=== PATIENT | female | born 1970 | race Caucasian/White ===

== ENCOUNTER → 2016-10-22 18:23 | Outpatient (CLI) | payer OTHER | END | disposition home or self-care (01) | LOC: D.MAMMO 10-09 10:15 | DX: Z12.31 Encounter for screening mammogram for malignant neoplasm of breast (principal) ==

== ENCOUNTER 2017-11-04 05:40 | Day surgery (SDC) | payer OTHER ==
[2017-11-02 11:13] LABS: HEMATOCRIT 37.1 % (36.0-48.0); HEMOGLOBIN 12.7 g/dL (12-16); MCH 30.4 pg (26.0-34.0); MCHC 34.2 g/dL (31.0-37.0); MCV 88.8 fL (80.0-100.0); MEAN PLATELET VOLUME 9.8 fL (7.4-10.4); RBC 4.18 10x6/uL (4.00-5.40); RDW 12.5 % (11.5-14.5); WBC 7.9 10x3/uL (4.8-10.8)
[~2017-11-04] VITALS: Ht 152.4 cm; Wt 64.9 kg
--- NOTE | ~2017-11-04 | OP ---
PATIENT NAME: PEDRO PENN MEDICAL RECORD: [id number] :70 LOCATION:[facility] ADMISSION DATE: SURGEON: JACOB AMAYA MD DATE OF OPERATION: 11/04/2017 PREOPERATIVE DIAGNOSES: Menorrhagia and a few abnormal ultrasound findings. POSTOPERATIVE DIAGNOSIS: Endometrial polyps. PROCEDURE: Hysteroscopy, D&C. SURGEON: Jacob Amaya MD ANESTHESIA: General by LMA. ESTIMATED BLOOD LOSS: Minimal. INTRAVENOUS FLUIDS: Per anesthesia records. HYSTEROSCOPIC FLUID LOSS: Approximately 100 cc of 0.9 normal saline. FINDINGS: 1. Proliferative-appearing endometrial cavity. 2. Multiple posterior endocervical and endometrial polyps. 3. Bilateral ostia identified. 4. Grossly normal external genitalia and cervix. COMPLICATIONS: None apparent. SPECIMENS: Endometrial curettings. DESCRIPTION OF PROCEDURE: The patient was taken to the operating room where general anesthesia was achieved without difficulty. The patient was prepped and draped in normal sterile fashion in the dorsal lithotomy position in the [facility]. At this point, the patient was prepped and draped and the bladder drained of approximately 100 cc of clear yellow urine. At this point, a Graves speculum was placed in the vagina and the cervix was identified and grasped on its anterior lip with a single tooth tenaculum. Uterus sounded to approximately 9 cm without resistance. The cervix was then gently dilated to approximately 7 mm, at which point the hysteroscope was introduced. Survey of the uterine cavity was performed following removal of the hysteroscope. A #1 curette was used to gently curette all 4 quadrants of the uterine cavity with special attention paid on the posterior part where multiple polyps were removed. Following curettage, the hysteroscope was replaced into the uterus and the polyps were found to have been removed with no significant active bleeding. The hysteroscope was then removed. The tenaculum was removed from the cervix. The patient tolerated the procedure well, was transferred to postanesthesia recovery stable without incident. TRANSINT:[id number] Voice Confirmation ID: [id number] DOCUMENT ID: [id number] OPERATIVE REPORT [id number] PEDRO PENN JACOB AMAYA MD at 1438 CC: [id number] DICTATION DATE: 11/04/17921 VICE PRESIDENT INDUSTRIAL RELATIONS: 11/04/17 1050 [facility]P [place] 11/04/17 [facility] [address] [place] [id number]
[~2017-11-04 05:40] MED LIST: MULTIPLE VITAMI1 TA1 PO; OMEGA 3 FISH OI1 CAP PO; PROBIOTIC250 MG PO
[2017-11-04 07:21] VITALS: BP 113/64; Ht 152.4 cm; Wt 64.9 kg
== END 2017-11-04 11:10 | disposition home or self-care (01) ==
LOC: D.PAN 05:40 → D.OPS 08:45 → D.PAN 09:15
PROVIDERS: Anesthesiology
DX: N84.0 Polyp of corpus uteri (principal); Z01.812 Encounter for preprocedural laboratory examination

== ENCOUNTER → 2017-12-16 16:45 | Outpatient (CLI) | payer OTHER ==
[2017-11-04 07:21] VITALS: BMI 27.9
== END | disposition home or self-care (01) ==
LOC: D.MAMMO 16:00
DX: Z12.31 Encounter for screening mammogram for malignant neoplasm of breast (principal)

== ENCOUNTER 2018-02-24 06:00 | Day surgery (SDC) | payer OTHER ==
[2018-02-23 12:53] LABS: BASOPHILS 0.2 % (0-2); EOSINOPHILS 0.4 % (0-7); HEMATOCRIT 40.7 % (36.0-48.0); HEMOGLOBIN 13.7 g/dL (12-16); IMMATURE GRANULOCYTES 0.2 % (0-5); LYMPHOCYTES 27.2 % (15-50); MCH 30.7 pg (26.0-34.0); MCHC 33.7 g/dL (31.0-37.0); MCV 91.3 fL (80.0-100.0); MONOCYTES 5.3 % (2-11); NEUTROPHILS 66.7 % (40-80); PLATELET COUNT 259 10x3/uL (130-400); RBC 4.46 10x6/uL (4.00-5.40); RDW 12.6 % (11.5-14.5); WBC 8.3 10x3/uL (4.8-10.8)
--- NOTE | ~2018-02-24 | OP ---
PATIENT NAME: PEDRO PENN MEDICAL RECORD: [id number] :70 LOCATION:[facility] ADMISSION DATE: SURGEON: OSCAR AMAYA MD DATE OF OPERATION: 02/24/2018 PREOPERATIVE DIAGNOSIS: Simple endometrial hyperplasia. POSTOPERATIVE DIAGNOSIS: Simple endometrial hyperplasia. PROCEDURES: Hysteroscopy, D and C. SURGEON: Oscar Amaya MD ESTIMATED BLOOD LOSS: Minimal. INTRAVENOUS FLUIDS: Per anesthesia record. HYSTEROSCOPIC FLUID LOSS: Approximately 100 cc of 0.9 normal saline. SPECIMENS: Endometrial curettings. COMPLICATIONS: None apparent. FINDINGS: Grossly normal appearing endometrial cavity cervix, vagina, and external genitalia. DESCRIPTION OF THE PROCEDURE: The patient was taken to the operating room where general anesthesia was achieved without difficulty, the patient was then prepped and draped in normal sterile fashion in dorsal lithotomy position in the [facility]. At this point, the patient was prepped and draped, bladder drained of approximately 100 cc of clear yellow urine. Graves speculum was then placed into the vagina and a single tooth tenaculum was used to grasp the anterior lip of the cervix. The patient sounded to approximately 8.5 cm. Dilation was performed at approximately 6 mm, at which point, the hysteroscope was placed and survey of the endometrial canal was performed. Following hysteroscopy, a #1 curette was used to do fractional curetting of all 4 quadrants of the uterus. Minimal bleeding was noted. The tenaculum was then removed followed by the speculum. The patient tolerated procedure well, was transferred to postanesthesia recovery stable without incident. TRANSINT:[id number] Voice Confirmation ID: [id number] DOCUMENT ID: [id number] OSCAR AMAYA MD at 1844 CC: [id number] DICTATION DATE: 03/11/182048 COORDINATE MEASURING MACHINE TECHNICIAN: 03/11/182121 [facility] 02/24/[address] [address]
[2018-02-24 07:28] VITALS: BP 95/48; BMI 29.1
== END 2018-02-24 11:45 | disposition home or self-care (01) ==
LOC: D.OPS 06:00 → D.PAN 08:30 → D.OPS 09:30
PROVIDERS: Obstetrics & Gynecology
DX: N85.01 Benign endometrial hyperplasia (principal); Z87.891 Personal history of nicotine dependence; Z01.812 Encounter for preprocedural laboratory examination

== ENCOUNTER 2018-04-07 06:50 | Day surgery (SDC) | payer OTHER ==
[2018-04-06 15:24] LABS: BASOPHILS 0.2 % (0-2); EOSINOPHILS 0.8 % (0-7); HEMATOCRIT 39.9 % (36.0-48.0); HEMOGLOBIN 13.3 g/dL (12-16); IMMATURE GRANULOCYTES 0.1 % (0-5); LYMPHOCYTES 20.1 % (15-50); MCH 30.6 pg (26.0-34.0); MCHC 33.3 g/dL (31.0-37.0); MCV 91.9 fL (80.0-100.0); MEAN PLATELET VOLUME 10.3 fL (7.4-10.4); MONOCYTES 9.6 % (2-11); NEUTROPHILS 69.2 % (40-80); PLATELET COUNT 235 10x3/uL (130-400); RBC 4.34 10x6/uL (4.00-5.40); RDW 12.7 % (11.5-14.5); WBC 8.4 10x3/uL (4.8-10.8)
[~2018-04-07] VITALS: Ht 152.4 cm; Wt 68.5 kg
--- NOTE | ~2018-04-07 | OP ---
PATIENT NAME: PEDRO PENN MEDICAL RECORD: [id number] :70 LOCATION:[place] ADMISSION DATE: SURGEON: OSCAR AMAYA MD DATE OF OPERATION: 04/07/2018 PREOPERATIVE DIAGNOSIS: Menorrhagia. POSTOPERATIVE DIAGNOSIS: Menorrhagia. PROCEDURE: NovaSure endometrial ablation and diagnostic hysteroscopy. SURGEON: Oscar Amaya MD ESTIMATED BLOOD LOSS: Minimal. INTRAVENOUS FLUIDS: Per anesthesia record. HYSTEROSCOPIC FLUID LOSS: Less than 100 cc of 0.9 normal saline. SPECIMENS: None. COMPLICATIONS: None apparent. FINDINGS: Grossly normal-appearing proliferative endometrial cavity sounding to 9.5 cm. DESCRIPTION OF PROCEDURE: The patient was taken to the operating room, where general anesthesia was achieved without any difficulty. The patient was then prepped and draped in normal sterile fashion in the dorsal lithotomy position in the [facility]. A straight catheter was used to drain the bladder of approximately 200 cc of clear yellow urine. A joshi speculum was then placed in the vagina and the cervix was identified and grasped at anterior lip with a single-tooth tenaculum. The patient was gently dilated to approximately 7 mm. The uterine cavity was then measured including the length of the cervix. At this point, further dilation to approximately 9 mm was performed and the NovaSure ablative device was then calibrated. The NovaSure was placed without any difficulty. A vacuum precheck was passed times 2, and the patient had a 102-second cycle without complication. The NovaSure device was then unlocked and removed via the [id number] technique with no bleeding noted from the cervical os. The single-tooth tenaculum was then removed. The patient tolerated the procedure well and was transported to postanesthesia recovery stable without any incident. TRANSINT:[id number] Voice Confirmation ID: [id number] DOCUMENT ID: [id number] OSCAR AMAYA MD at 1754 CC: [id number] DICTATION DATE: 04/16/18 0733 [place]: 04/16/18 1015 [facility] 04/07/18 [place] [id number]
[2018-04-07 07:33] VITALS: BP 106/63; Ht 152.4 cm; Wt 68.5 kg
[2018-04-07 07:45] LABS: HCG URINE NEGATIVE (NEGATIVE)
== END 2018-04-07 11:33 | disposition home or self-care (01) ==
LOC: D.OPS 06:50 → D.PAN 09:30 → D.OPS 11:33
PROVIDERS: Obstetrics & Gynecology
DX: N92.0 Excessive and frequent menstruation with regular cycle (principal); F41.9 Anxiety disorder, unspecified; Z79.899 Other long term (current) drug therapy; Z01.812 Encounter for preprocedural laboratory examination

== ENCOUNTER 2019-02-16 09:00 | Outpatient (CLI) | payer OTHER ==
[2018-04-07 07:33] VITALS: BMI 30.7
== END 2019-02-16 10:00 | disposition home or self-care (01) ==
LOC: D.MAMMO 09:00
PROVIDERS: ATTEND Obstetrics & Gynecology
DX: Z12.31 Encounter for screening mammogram for malignant neoplasm of breast (principal)

== ENCOUNTER → 2020-02-22 23:59 | Outpatient (CLI) | payer OTHER ==
[2018-04-07 07:33] VITALS: BMI 30.7
== END | disposition home or self-care (01) ==
LOC: D.MAMMO 02-21 20:16
PROVIDERS: ATTEND Obstetrics & Gynecology
DX: Z12.31 Encounter for screening mammogram for malignant neoplasm of breast (principal)

== ENCOUNTER → 2020-03-04 14:56 | Outpatient (CLI) | payer OTHER ==
[2018-04-07 07:33] VITALS: BMI 30.7
== END | disposition home or self-care (01) ==
LOC: D.US 02-29 15:30
PROVIDERS: ATTEND Obstetrics & Gynecology
DX: R92.8 Other abnormal and inconclusive findings on diagnostic imaging of breast (principal)

== ENCOUNTER → 2021-02-27 16:15 | Outpatient (CLI) | payer OTHER ==
[2018-04-07 07:33] VITALS: BMI 30.7
== END | disposition home or self-care (01) ==
LOC: D.MAMMO 16:15
PROVIDERS: ATTEND Internal Medicine
DX: Z12.31 Encounter for screening mammogram for malignant neoplasm of breast (principal)